=== PATIENT | female | born 1990 | race Caucasian/White ===

== ENCOUNTER 2023-03-12 08:11 | Emergency (ER) | payer BC ==
[2023-03-12] MEDS ORDERED: Ketorolac 30 MG/ML SDV IM ONE (09:09)
[2023-03-12] MEDS ORDERED: Lidocaine 4% 1 each Patch TOP STA (09:10)
[2023-03-12] MEDS ORDERED: Sodium Chloride 0.9% 2.5 ML Syringe FLUSH PRN (09:23)
[2023-03-12] MEDS ORDERED: Sodium Chloride 0.9% 10 ML Syringe FLUSH PRN (09:23)
[2023-03-12] MEDS ORDERED: Ketorolac 30 MG/ML SDV IVPUSH ONE (09:23)
[2023-03-12 10:07] LABS: BASOPHILS PERCENT AUTO 0.3 % (0.0-1.5); EOSINOPHILS ABSOLUTE AUTO 0.1 K/uL (0.0-0.7); EOSINOPHILS PERCENT AUTO 2.4 % (0.0-7.0); HEMOGLOBIN 14.4 g/dL (12.0-16.0); LYMPHOCYTES ABSOLUTE AUTO 1.9 K/uL (0.6-2.4); LYMPHOCYTES PERCENT AUTO 31.4 % (16.0-40.0); MEAN CORPUSCULAR HEMOGLOBIN 30.4 pg (27.0-32.0); MEAN CORPUSCULAR HGB CONC 34.3 g/dL (31.0-37.0); MEAN CORPUSCULAR VOLUME 88.6 fL (80.0-98.0); MONOCYTES ABSOLUTE AUTO 0.6 K/uL (0.0-0.8); MONOCYTES PERCENT AUTO 10.9 % (0.0-15.0); NEUTROPHILS ABSOLUTE AUTO 3.2 K/uL (1.4-5.7); NRBC ABSOLUTE 0 K/uL; PLATELET COUNT,PLT 449 K/uL (150-400); RED BLOOD CELL COUNT 4.74 M/uL (4.30-5.90); WHITE BLOOD CELL COUNT,WBC 5.89 K/uL (4.0-11.0)
[2023-03-12 10:33] LABS: CARBON DIOXIDE,CO2 25.2 mmol/L (21.0-32.0); CREATININE 0.8 mg/dL (0.6-1.0); EST CRCL DRUG DOSING (CG) 90.84 mL/min; POTASSIUM,K 3.8 mmol/L (3.5-5.1)
[2023-03-12 11:15] LABS: INR 1.07 (0.86-1.11)
[2023-03-12] MEDS ORDERED: Iopamidol 755 MG/ML 500 ML Multipack Bottle IVPUSH STA (12:20)
== END 2023-03-12 14:31 | disposition home or self-care (01) ==
LOC: MW.ED 08:11
DX: M54.12 Radiculopathy, cervical region (principal); M25.512 Pain in left shoulder; Z88.1 Allergy status to other antibiotic agents; Z88.0 Allergy status to penicillin; Z86.16 Personal history of COVID-19
CPT/HCPCS: 36415; 70450; 70496; 70498; 80048; 84484; 85025; 85610; 93005; 96374; 99285; A9270; J1885; J3490; 93010; 99284

== ENCOUNTER 2023-05-20 06:33 | Day surgery (SDC) | payer BC ==
[~2023-05-20 06:33] MED LIST: Lactated Ringers 1,000 ML IV SCH; Sodium Chloride 0.9% 10 ML Syringe FLUSH PRN; Sodium Chloride 0.9% 2.5 ML Syringe FLUSH PRN; Sodium Chloride 0.9% 20 ML SDV IV PRN
[2023-05-20] MEDS ORDERED: Naloxone 0.4 MG/ML SDV IVPUSH PRN (07:04)
[2023-05-20] MEDS ORDERED: Metoclopramide 10 MG/2 ML SDV IVPUSH PRN (07:04)
[2023-05-20] MEDS ORDERED: droPERidol 5 MG/2 ML SDV IVPUSH PRN (07:04)
[2023-05-20] MEDS ORDERED: Morphine 2 MG/ML SYRINGE IVPUSH PRN (07:04)
[2023-05-20] MEDS ORDERED: Ondansetron 4 MG/2 ML SDV IVPUSH PRN (07:04)
[2023-05-20] MEDS ORDERED: HYDROmorphone 1 MG/ML Syringe IVPUSH PRN (07:04)
[2023-05-20] MEDS ORDERED: Albuterol 0.083% 2.5 MG/3 ML Neb Soln NEB PRN (07:04)
[2023-05-20] MEDS ORDERED: fentaNYL 50 MCG/ML SDV IVPUSH PRN (07:04)
[2023-05-20] MEDS ORDERED: Propofol 200 MG/20 ML SDV ONE (07:26)
[2023-05-20] MEDS ORDERED: Water For Injection, Sterile 20 ML ONE (07:26)
[2023-05-20] MEDS ORDERED: dexmedeTOMIDine HCl 200 MCG/2 ML SDV ONE (07:26)
[2023-05-20] MEDS ORDERED: Bupivacaine 0.5% 30 ML SDV ONE (07:34)
[2023-05-20] MEDS ORDERED: Lidocaine 2% 11 ML Jelly Filled Syringe ONE (07:35)
[2023-05-20] MEDS ORDERED: Chloroprocaine 10 MG/ML 5 ML Amp ONE (07:35)
[2023-05-20] MEDS ORDERED: Midazolam 1 MG/ML 2 ML SDV ONE (07:40)
[2023-05-20] MEDS ORDERED: Benzocaine 20% Topical Spray UD ONE (07:58)
[2023-05-20] MEDS ORDERED: cefOXitin 1 GM Vial ONE ×2 (07:58)
[2023-05-20] MEDS ORDERED: Acetaminophen/oxyCODONE 325-5 MG Tab PO ONE (08:56)
[2023-05-20] MEDS ORDERED: cefOXitin 2 GM in Sodium Chloride 0.9% 50 ML IV ONE (16:09)
== END 2023-05-20 10:05 | disposition home or self-care (01) ==
LOC: MW.SDS 06:33
PROVIDERS: ATTEND Surgery
DX: K64.3 Fourth degree hemorrhoids (principal); K64.4 Residual hemorrhoidal skin tags; I83.90 Asymptomatic varicose veins of unspecified lower extremity; F32.A Depression, unspecified; F41.9 Anxiety disorder, unspecified; Z87.891 Personal history of nicotine dependence; Z79.899 Other long term (current) drug therapy; Z88.0 Allergy status to penicillin; Z88.1 Allergy status to other antibiotic agents
CPT/HCPCS: 46255; 81025; A9270; J0694; J2250; J2401; J2704; J3490; J7120